=== PATIENT | female | born 1990 | race Caucasian/White ===

== ENCOUNTER 2017-11-05 15:18 | Emergency (ER) | payer MEDICAID ==
--- NOTE | 2017-11-05 15:46 | EDPHY ---
General Narrative: CHIEF COMPLAINT: Fall, left shoulder pain, right foot pain HISTORY OF PRESENT ILLNESS: Patient complains of left shoulder pain right foot pain status post fall. She says "I was messing around on the stairs and I fell." She reports landing on her left shoulder and right foot. She feels as though she had to push her left shoulder back into place. She is moderate to severe pain in the left shoulder right foot. No head strike or loss of consciousness. No chest pain or shortness of breath. No neck pain. No abdominal pain or injury. Worse with palpation and movement. She was able to walk into the emergency department. No other associated complaints or modifying factors. ESTABLISHED ORTHOPEDIST: None REVIEW OF SYSTEMS: Ten systems reviewed and are negative unless otherwise noted in the HPI PAST MEDICAL HISTORY: Uncomplicated PAST SURGICAL HISTORY: No recent surgeries SOCIAL HISTORY: Daily smoker. Occasional drug use. FAMILY HISTORY: Noncontributory EXAMINATION General Appearance: Alert, no distress HEENT: Normocephalic atraumatic. Pupils equal round reactive Neck: Supple without meningeal signs Cardiovascular: Symmetric radial pulses 2+. Neurological: A&O, sensory symmetric, strength symmetric Skin: Warm and dry, no rash. No petechiae or purpura. No laceration abrasion or contusion Extremities: Superficial tenderness of the left shoulder and right ankle of the midfoot. No step-off or deformity. Range of motion is intact but painful. Neurovascular intact distal to the areas of pain. Psychiatric: Mood and affect normal DIFFERENTIAL DIAGNOSES: Including but not limited to fracture, sprain, strain, contusion, dislocation MDM: 3:40 p.m. Mechanical fall with left shoulder right foot pain. No outward signs of trauma. Neurovascular intact. No head injury or indication for CT scan. She is resting comfortably in no acute distress with vital signs within normal limits. 4:25 p.m. X-rays are negative for any acute findings. I have re-evaluated the patient and she is in no acute distress. I have discussed discharge home with ice, elevation and [id number] anti-inflammatories as needed. She will contact her existing primary care physician and I have provided the on-call orthopedist for outpatient follow-up. I did not provide any narcotic prescriptions for her as she has had 3 prescriptions in the past 30 days. She is discharged home stable condition. SUPERVISION: This patient was independently evaluated without direct involvement of or examination by the attending physician. ED Precautions: Worsening pain. Erythema, edema, cyanosis, pallor, paresthesia or anesthesia. - Diagnostics Imaging Results: Imaging Impressions Foot X-Ray 11/05/17 15:38 Impression: Negative. RIGHT FOOT (3 Views, at 3:57 PM): Bone mineralization is preserved. There is no fracture or dislocation. The tarsometatarsal alignment is anatomic. There is a tiny plantar calcaneal enthesophyte. There is no ankle joint effusion. Impression: There is no acute osseous abnormality identified. Shoulder X-Ray 11/05/17 15:38 Impression: Negative. RIGHT FOOT (3 Views, at 3:57 PM): Bone mineralization is preserved. There is no fracture or dislocation. The tarsometatarsal alignment is anatomic. There is a tiny plantar calcaneal enthesophyte. There is no ankle joint effusion. Impression: There is no acute osseous abnormality identified. - History Smoking Status: Light smoker - Objective Vital Signs: Initial Vital Signs Temperature (C) 98.1 F 11/05/17 15:23 Heart Rate 83 11/05/17 15:23 Respiratory Rate 18 11/05/17 15:23 Blood Pressure 134/86 H 11/05/17 15:23 O2 Sat (%) 99 11/05/17 15:23 O2 Delivery Mode Room Air Allergies/Adverse Reactions: codeine Allergy (Mild, Verified 09/07/16 12:38) Itching Sulfa (Sulfonamide Antibiotics) Allergy (Mild, Verified 09/07/16 12:38) sores in mouth Home Medications: Medication Instructions Recorded Hydrocodone/APAP 5/325 [[place] 1 tab PO Q6 PRN #15 tab 09/07/16 5/325 (RX)] No Known Home Meds 09/07/16 Departure - Departure Disposition: Home, Routine, Self-Care Clinical Impression: Sprain of shoulder, left Qualifiers: Encounter type: initial encounter Shoulder sprain type: unspecified sprain Qualified Code(s): S43.402A - Unspecified sprain of left shoulder joint, initial encounter Sprain of right foot Qualifiers: Encounter type: initial encounter Qualified Code(s): S93.601A - Unspecified sprain of right foot, initial encounter Condition: Good Instructions: Shoulder Sprain (ED), Foot Sprain (ED) Additional Instructions: 1. Ice and elevation as needed 2. [id number] anti-inflammatories as discussed as needed 3. Follow up with primary care physician Four. Follow up with on-call orthopedist as provided Referrals: Jordan Smith MD [Medical Doctor] - As per Instructions Stand Alone Forms: Work Excuse
[2017-11-05 16:52] VITALS: BP 123/84; PULSE 79; RESP 16; TEMP 98.4; O2SAT 97
== END 2017-11-05 16:58 | disposition home or self-care (01) ==
DX: S93.601A Unspecified sprain of right foot, initial encounter (principal); S43.402A Unspecified sprain of left shoulder joint, initial encounter; F17.200 Nicotine dependence, unspecified, uncomplicated; W18.39XA Other fall on same level, initial encounter